=== PATIENT | male | born 1990 | race Caucasian/White ===

== ENCOUNTER 2018-11-07 16:16 | Inpatient (IN) | payer MEDICAID, OTHER ==
--- NOTE | 2018-11-07 16:47 | ED ---
General Adult HPI - General Chief complaint: Psychiatric Symptoms Stated complaint: depression Time Seen by Provider: 11/07/18 16:32 Source: patient, RN notes reviewed Mode of arrival: ambulatory Limitations: no limitations - History of Present Illness Initial comments: Patient is a pleasant 28-year-old male presenting to the emergency department with depression. Patient has long-standing history of depression and bipolar and schizophrenia. Patient is on several medications and has been off of these for a month or so. Patient does have a history of alcohol use however has been sober for several months. No street drug use. No hallucinations. No physical complaints. Patient does have anxiety and states he is starting to feel paranoid. - Related Data Allergies Allergy/AdvReac Type Severity Reaction Status Date / Time No Known Allergies Allergy Verified 11/07/18 16:22 Review of Systems ROS Statement: Those systems with pertinent positive or pertinent negative responses have been documented in the HPI. ROS Other: All systems not noted in ROS Statement are negative. Constitutional: Denies: fever Eyes: Denies: eye pain ENT: Denies: ear pain Respiratory: Denies: cough Cardiovascular: Denies: chest pain Endocrine: Denies: fatigue Gastrointestinal: Denies: abdominal pain Genitourinary: Denies: dysuria Musculoskeletal: Denies: back pain Skin: Denies: rash Neurological: Denies: headache Psychiatric: Reports: anxiety, depression Past Medical History Past Medical History: No Reported History History of Any Multi-Drug Resistant Organisms: None Reported Past Surgical History: No Surgical Hx Reported Past Psychological History: Anxiety, Bipolar, Depression, PTSD, Schizophrenia Smoking Status: Never smoker Past Alcohol Use History: None Reported Past Drug Use History: Marijuana General Exam Limitations: no limitations General appearance: alert, in no apparent distress Head exam: Present: atraumatic Eye exam: Present: normal appearance, PERRL ENT exam: Present: normal oropharynx Neck exam: Present: normal inspection Respiratory exam: Present: normal lung sounds bilaterally Cardiovascular Exam: Present: regular rate, normal rhythm GI/Abdominal exam: Present: soft. Absent: tenderness Extremities exam: Present: normal inspection Neurological exam: Present: alert Psychiatric exam: Present: normal affect, normal mood Skin exam: Present: normal color Course Vital Signs 11/07/18 16:22 Temperature 98.2 F Pulse Rate 102 H Respiratory 18 Rate Blood Pressure 129/73 O2 Sat by Pulse 96 Oximetry Medical Decision Making - Medical Decision Making Patient was seen by mental health services, who will admit. - Lab Data Lab Results 11/07/18 Range/Units 16:49 Urine Opiates Screen Not Detected (NotDetected) Ur Oxycodone Screen Not Detected (NotDetected) Urine Methadone Screen Not Detected (NotDetected) Ur Propoxyphene Screen Not Detected (NotDetected) Ur Barbiturates Screen Not Detected (NotDetected) U Tricyclic Antidepress Not Detected (NotDetected) Ur Phencyclidine Scrn Not Detected (NotDetected) Ur Amphetamines Screen Not Detected (NotDetected) U Methamphetamines Scrn Not Detected (NotDetected) U Benzodiazepines Scrn Not Detected (NotDetected) Urine Cocaine Screen Not Detected (NotDetected) U Marijuana (THC) Screen Detected H (NotDetected) Disposition Clinical Impression: Depression, Bipolar disorder, Schizophrenia Disposition: TRANSFER TO PSYCH HOSP/UNIT Is patient prescribed a controlled substance at d/c from ED?: No Referrals: None,Stated [Primary Care Provider] - 1-2 days Decision Time: 18:12
[2018-11-07 17:15] LABS: Amphetamine Screen,Urine Not Detected (NotDetected); Barbiturate Screen,Urine Not Detected (NotDetected); Benzodiazepines Screen,Urine Not Detected (NotDetected); Cocaine Screen,Urine Not Detected (NotDetected); Methadone Screen, Urine Not Detected (NotDetected); Opiate Screen,Urine Not Detected (NotDetected); Oxycodone Screen, Urine Not Detected (NotDetected); Phencyclidine Screen,Urine Not Detected (NotDetected); Tricyclic Antidepressant,Urine Not Detected (NotDetected); Urn Cannabinoid Scrn Detected (NotDetected)
[2018-11-07] MEDS ORDERED: MAGNESIUM HYDROXIDE 2,400 MG/10 ML CUP PO PRN (18:46)
[2018-11-07] MEDS ORDERED: ACETAMINOPHEN TAB 325 MG TAB PO PRN (18:46)
[2018-11-07] MEDS ORDERED: MAG HYDROX/AL HYDROX/SIMETH 30 ML CUP PO PRN (18:46)
[2018-11-07] MEDS: LORazepam 1 MG TAB PO SCH (20:21)
[2018-11-08] MEDS: LORazepam 1 MG TAB PO SCH ×2 (08:14→20:40)
[2018-11-08] MEDS: NICOTINE 14MG/24HR PATCH TRANSDERM SCH (08:18)
[2018-11-08 08:58] LABS: Basophils % (A) 0 %; Eosinophils # (A) 0.4 k/uL (0-0.7); Eosinophils % (A) 5 %; HCT 50.1 % (39.0-53.0); HGB 16.6 gm/dL (13.0-17.5); Lymphocytes # (A) 2.9 k/uL (1.0-4.8); Lymphocytes % (A) 36 %; MCH 30.8 pg (25.0-35.0); MCHC 33.2 g/dL (31.0-37.0); MCV 92.7 fL (80.0-100.0); Mean Platelet Volume 8.1; Monocytes # (A) 0.6 k/uL (0-1.0); Monocytes % (A) 7 %; Neutrophils # (A) 3.9 k/uL (1.3-7.7); Neutrophils % (A) 49 %; Platelet Count 197 k/uL (150-450); RDW 13.2 % (11.5-15.5)
[2018-11-08 09:11] LABS: ALT 34 U/L (21-72); AST 30 U/L (17-59); Albumin 4.8 g/dL (3.5-5.0); Alkaline Phosphatase 67 U/L (38-126); Anion Gap 8 mmol/L; Blood Urea Nitrogen 14 mg/dL (9-20); Calcium 10.1 mg/dL (8.4-10.2); Carbon Dioxide 28 mmol/L (22-30); Chloride 106 mmol/L (98-107); Cholesterol 171 mg/dL (<200); Glucose 99 mg/dL (74-99); HDL Cholesterol 65 mg/dL (40-60); LDL Cholesterol,Calculated 87 mg/dL (0-99); Potassium 4.2 mmol/L (3.5-5.1); Sodium 142 mmol/L (137-145); Total Bilirubin 1.6 mg/dL (0.2-1.3); Total Protein 7.7 g/dL (6.3-8.2); Triglycerides 93 mg/dL (<150)
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
[2018-11-08 16:50] VITALS: BMI 19.6
--- NOTE | 2018-11-08 20:11 | P.MDCNMH ---
History of Present Illness H&P Date: 11/08/18 Chief Complaint: medical evaluation 28 year old male with history of anxiety depression and bipolar disorder, he ran out of his depakote, which he found to be helpful, couple months ago. He currently stays with his friend and father, who did not feel comfortable with, and decided to leave them and come to the hospital seeking help. He admits that he claimed to be suicidal to get admitted, but he actually denies any suicidal or homicidal ideation. he plans on going to his mother place on friday. but he wanted to get his depakote refilled. He reported dental issues few months ago, and worried that this problem might be recurring now. he denies any pain in his teeth, fever, chills, chest pain, trouble breathing, abd pain, nausea or vomiting. Review of Systems Pertinent positives as noted in HPI. All other systems were reviewed and are negative Past Medical History Past Medical History: No Reported History History of Any Multi-Drug Resistant Organisms: None Reported Past Surgical History: No Surgical Hx Reported Past Anesthesia/Blood Transfusion Reactions: No Reported Reaction Smoking Status: Former smoker Medications and Allergies Home Medications Medication Instructions Recorded Confirmed Type No Known Home Medications 11/07/18 11/07/18 History Allergies Allergy/AdvReac Type Severity Reaction Status Date / Time cefaclor Allergy Unknown Verified 11/07/18 19:12 Physical Exam Vitals: Vital Signs Temp Pulse Resp BP 11/08/18 06:42 98 F 65 16 119/57 Intake and Output 11/08/18 11/08/18 11/08/18 06:59 14:59 22:59 Other: Weight 63.7 kg Constitutional: No acute distress, conversant, pleasant Eyes: Anicteric sclerae, moist conjunctiva, no lid-lag Pupils equal round reactive to light ENMT: NC/AT Oropharynx clear, no erythema, exudates Neck: Supple, FROM, no masses, or JVD No carotid bruits No thyromegaly Lungs: Clear to auscultation Clear to percussion Normal respiratory effort, no accessory muscle use Cardiovascular: Heart regular in rate and rhythm, No murmurs, gallops, or rubs No peripheral edema Abdominal: Soft Nontender, no guarding, rebound or rigidity Abdomen moving with respiration Normoactive bowel sounds No hepatomegaly, No splenomegaly No palpable mass No abdominal wall hernia noted Skin: Normal temperature, tone, texture, turgor No induration No subcutaneous nodules No rash, lesions No ulcers Extremities: No digital cyanosis No clubbing Pedal pulses intact and symmetrical Radial pulses intact and symmetrical No calf tenderness Psychiatric: Alert and oriented to person, place and time Appropriate affect fair judgment Neuro Muscles Strength 5/5 in all 4 extremities Sensation to light touch grossly present throughout Cranial nerves II-XII grossly intact No focal sensory deficits Lymphatics: no palpable cervical or supraclavicular , or inguinal lymph nodes Cranial Nerve Examination - Cranial Nerves Cranial Nerve II- Optic: Intact Cranial Nerve III- Oculomotor: Intact Cranial Nerve IV- Trochlear: Intact Cranial Nerve V- Trigeminal: Intact Cranial Nerve - Abducens: Intact Cranial Nerve VII- Facial: Intact Cranial Nerve VIII- Auditory: Intact Cranial Nerve IX- Glossopharyngeal: Intact Cranial Nerve X- Vagus: Intact Cranial Nerve XI- Accessory: Intact Cranial Nerve XII- Hypoglossal: Intact Results CBC & Chem 7: 11/08/18 08:20 11/08/18 08:20 Labs: Abnormal Lab Results - Last 24 Hours (Table) 11/08/18 Range/Units 08:20 Total Bilirubin 1.6 H (0.2-1.3) mg/dL HDL Cholesterol 65 H (40-60) mg/dL Assessment and Plan Assessment: 28-year-old male currently denies any suicidal or homicidal ideation admits to history of bipolar disorder depression and anxiety he has run out of Depakote few months ago and requesting a refill. He is planning on going to his mother' s place on Friday medicine was counseled for medical management currently denies any medical complaints. Except for some discomfort in the site where he had tooth extraction couple months ago for which I recommended that he follows up with his dentist once he is released currently denies any fevers or chills there is no swelling in his gums there is no visible discoloration over the gums Plan: History of bipolar, depression anxiety Management per psych DVT to prophylaxis low-risk patient is ambulatory Thank you for allowing us to participate in the care of this patient. We will follow peripherally. Do not hesitate to contact us with questions. Someone can be reached from the [facility] [place] hospitalist group at all hours of the day at [phone].
[2018-11-08] MEDS: DIVALPROEX ER 500 MG TAB.ER.24H PO SCH (20:40)
[2018-11-09] MEDS: NICOTINE 14MG/24HR PATCH TRANSDERM SCH (08:06)
[2018-11-09] MEDS: LORazepam 1 MG TAB PO SCH ×3 (08:06→21:09)
[2018-11-09 11:24] LABS: Hemoglobin A1C 5.3 % (4.0-6.0)
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
[2018-11-09] MEDS: DIVALPROEX ER 500 MG TAB.ER.24H PO SCH (20:49)
[2018-11-10] MEDS: LORazepam 1 MG TAB PO SCH (08:02)
[2018-11-10] MEDS: NICOTINE 14MG/24HR PATCH TRANSDERM SCH (08:02)
--- NOTE | 2018-11-10 11:20 | P.PN ---
Progress Note - Text Interval history: The patient is found in the hallway he follows me to an interview room. He reports his mood is stable he feels good. He has no questions or concerns. We discussed drawing a Depakote level in the morning. It appears arrangements have been made for him to be discharged tomorrow. His mother will be picking him up and he will be returning to [place]. He has been cooperative pleasant he's been participating in groups. Mental status exam: The patient is alert he is dressed in his own clothing hygiene grooming are adequate. Speech is fluent spontaneous nonpressured. He denies having any suicidal or homicidal ideation intent or plan. He is reporting no auditory or visual hallucinations or any specific delusions. He demonstrates future oriented thinking. He does not appear hypomanic or manic there is no observed evidence of psychosis. He demonstrates no verbal or physical aggressiveness. He is oriented to person place and date. Affect is constricted. Plan: The patient will continue on the Depakote is written. I will order lab work for tomorrow morning. He is encouraged to continue participating in the milieu. Vital signs are reviewed. We will continue to monitor him for safety.
[2018-11-10] MEDS: DIVALPROEX ER 500 MG TAB.ER.24H PO SCH (20:04)
[2018-11-11 06:58] VITALS: BP 107/55; PULSE 64; RESP 14; TEMP 98.3
[2018-11-11] MEDS: NICOTINE 14MG/24HR PATCH TRANSDERM SCH (09:35)
--- NOTE | 2018-11-11 10:05 | P.DS ---
Providers Date of admission: 11/07/18 18:39 Expected date of discharge: 11/11/18 Attending physician: Vipin Dawkins DO Consults: 11/08/18 07:29 Consult Physician Routine Consulting Provider: Riaz Spears Consult Reason/Comments: H and P Do you want consulting provider notified?: Yes Primary care physician: Stated None - Discharge Diagnosis(es) (1) Depression Current Visit: Yes Status: Acute Priority: High (2) Cannabis use disorder, mild, abuse Current Visit: Yes Status: Acute Priority: Medium (3) Anxiety Current Visit: Yes Status: Acute Priority: Medium Hospital Course: Brief summary of admission note: The patient is a 28-year-old single male who was admitted to the mental health unit through the emergency room for acute suicidal ideation. The patient indicated he been staying with a friend and he felt his friend and his family were bullying him. He felt overwhelmed. He presented to the emergency room stating he was suicidal. He had been off of his psychotropic medications for approximately a month which was Depakote. He felt Depakote provided benefit it helped organize his thoughts and stabilize his mood. He endorsed intermittent feelings of anxiety. He had a plan of staying with his mother soon but didn't feel he was able to keep himself safe until he was going to see her. For full details please refer to my psychiatric evaluation dated 11/08/2018. Summary of hospital course: The patient was admitted to the mental health unit voluntarily. We reviewed his presenting symptoms and treatment options. He indicated he was no longer suicidal because he was at the hospital but felt that restarting his Depakote would be helpful. We restarted it using the extended release formulation 1000 mg at bedtime. Depakote level was drawn this morning results are pending. The patient has been attending groups he demonstrated no agitated behavior. He states his mood is much improved as he is having supportive conversations with his mother. His mother will be coming to the mental health unit this morning for support meeting and she will be taking him to [facility] in [place] for an intake appointment. The patient will be residing with her. He reports no suicidal ideation intent or plan and he demonstrates future oriented thinking. We discussed his use of marijuana he states he will discontinue it and does not feel that he needs any inpatient chemical dependency treatment. Mental status exam: The patient is a thin male appearing his stated age. His hair short. He demonstrates appropriate hygiene grooming. He is dressed in his own clothing. Eye contact is appropriate speech is fluent spontaneous nonpressured. Thought process is linear he demonstrates no tangential thinking loose associations or flight of ideas. He reports no auditory or visual hallucinations or any specific delusions. He demonstrates no objective evidence of psychosis. He is oriented to person place and date. He demonstrates no verbal or physical aggressiveness. Affect is euthymic and appropriately expressive. He denies having any suicidal or homicidal ideation intent or plan. Impressions 1. 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 He plans on residing with his mother in [place]. She will be taking him to his intake appointment with community [facility] in [place] today. The patient will continue on Depakote ER 1000 mg at bedtime. He is instructed to abstain from any use of alcohol marijuana or any illicit drugs as these may elevate his safety risk. He does not feel that he needs to participate in inpatient chemical dependency treatment to abstain from those substances. At this point there is no imminent safety risk is appropriate for transition outpatient care. He is instructed to return to the hospital for any acute safety concerns. Patient Condition at Discharge: Stable Plan - Discharge Summary Discharge Rx Participant: No New Discharge Prescriptions: New Divalproex ER [Depakote ER] 1,000 mg PO HS #60 tab.er.24h Nicotine 14Mg/24Hr Patch [Habitrol] 1 patch TRANSDERM DAILY #10 patch Discharge Medication List Divalproex ER [Depakote ER] 1,000 mg PO HS #60 tab.er.24h 11/11/18 [Rx] Nicotine 14Mg/24Hr Patch [Habitrol] 1 patch TRANSDERM DAILY #10 patch 11/11/18 [ Rx] Follow up Appointment(s)/Referral(s): intake,intake [Other] - 1-2 Days None,Stated [Primary Care Provider] - 1-2 days Activity/Diet/Wound Care/Special Instructions: Activity and diet as tolerated. Avoid the use of street drugs and alcohol. Take all medications as prescribed. When you are in need of refills on your medications please contact your medical provider and/or outpatient psychiatrist to have this done. Please go to scheduled outpatient appointment for aftercare treatment. If symptoms return or become worse, call the crisis line at [phone] and/or go to the nearest emergency room for evaluation.
[2018-11-11 10:09] LABS: Valproic Acid (Depakene) 83.8 ug/mL
== END 2018-11-10 11:15 | disposition home or self-care (01) | DRG 881 ==
LOC: EC 16:16 → 3MHU 18:39
PROVIDERS: ADMIT Psychiatry & Neurology Psychiatry; ATTEND Psychiatry & Neurology Psychiatry
DX: F32.9 Major depressive disorder, single episode, unspecified (principal); R45.851 Suicidal ideations; F20.0 Paranoid schizophrenia; Z91.128 Patient's intentional underdosing of medication regimen for other reason; F41.9 Anxiety disorder, unspecified; F43.10 Post-traumatic stress disorder, unspecified; F12.10 Cannabis abuse, uncomplicated; F10.20 Alcohol dependence, uncomplicated; T42.6X6A Underdosing of other antiepileptic and sedative-hypnotic drugs, initial encounter; Z81.8 Family history of other mental and behavioral disorders
CPT/HCPCS: 80053; 80061; 80164; 80306; 82075; 83036; 84443; 84450; 84460; 85025; 99285